=== PATIENT | male | born 1955 | race Caucasian/White ===

== ENCOUNTER 2024-01-19 14:08 | Emergency (ER) | payer OTHER, SELFPAY ==
[2024-01-19] VITALS (15 sets, daily range): BP systolic 122–166; BP diastolic 73–102; PULSE 81–92; RESP 9–18; TEMP 36.9; O2SAT 90–99
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
[2024-01-19 14:31] LABS: Add Manual Diff / Slide Review NO; Basophils Absolute Auto 100 /uL (0-100); Eosinophils Absolute Auto 300 /uL (0-450); Eosinophils Percent Auto 2.6 % (2-4); Hematocrit 44.7 % (41-53); Hemoglobin 15.2 g/dL (13.5-17.5); Lymphocytes Absolute Auto 3800 /uL (1100-4500); Lymphocytes Percent Auto 35.7 % (25-40); Mean Corpuscular HGB Conc 33.9 % (30-36); Mean Corpuscular Hemoglobin 30.7 PG (26-34); Mean Corpuscular Volume 90.6 fL (80-100); Monocytes Absolute Auto 900 /uL (0-900); Monocytes Percent Auto 8.3 % (3-14); Neutrophils Absolute Auto 5500 /uL (1500-7000); Neutrophils Percent Auto 52.4 % (50-75); Platelet Count 229 X10^3/uL (150-400); Red Blood Cell Count 4.94 X10^6/uL (4.5-5.9); Red Cell Distribution Width 13.5 % (11.6-14.8); White Blood Cell Count 10.5 X10^3/uL (4.5-11.0)
--- NOTE | 2024-01-19 14:37 | PC.NURSE ---
Patient began vomiting in CT, log rolled to side, suction hooked up. Administration of IV zofran.
[2024-01-19] MEDS: ONDANSETRON 4 MG/2 ML INJ IV (14:41)
[2024-01-19 14:43] LABS: Alanine Aminotransferase 41 IU/L (<50); Albumin 4.2 g/dL (3.5-5.0); Albumin Globulin Ratio 1.7 (1.0-2.8); Alkaline Phosphatase 56 U/L (38-126); Aspartate Aminotransferase 40 IU/L (17-59); BUN Creatinine Ratio 29.1 (6-22); Bilirubin Total 0.8 mg/dL (0.2-1.3); Blood Urea Nitrogen 25 mg/dL (9-20); Calcium 8.9 mg/dL (8.4-10.2); Carbon Dioxide 23 mmol/L (22-32); Chloride 104 mmol/L (98-107); Estimated Glomerular Filt Rate > 60 mL/min (>60); Ethanol (ETOH) < 10 mg/dL; Globulin 2.5 g/dL (1.7-4.1); Glucose 132 mg/dL (80-110); HEMOLYSIS < 15 (0-50); Lipase 118 U/L (23-300); Potassium 3.7 mmol/L (3.4-5.1); Sodium 134 mmol/L (137-145); Total Protein 6.7 g/dL (6.3-8.2)
[2024-01-19] MEDS: ACETAMINOPHEN IV 1,000 MG/100 ML VIAL 400 MG IV (15:02)
--- NOTE | 2024-01-19 15:09 | PC.NURSE ---
Pt's at bedside providing medical history. Pt still A&Ox1, obeying commands. Complaining of a headache. IV tylenol ordered and running.
== END 2024-01-19 17:30 | disposition short-term general hospital (02) ==
PROVIDERS: Emergency Provider Emergency Medicine
DX: S06.6X0A Traumatic subarachnoid hemorrhage without loss of consciousness, initial encounter (principal); S06.5X0A Traumatic subdural hemorrhage without loss of consciousness, initial encounter; S02.109A Fracture of base of skull, unspecified side, initial encounter for closed fracture; S20.211A Contusion of right front wall of thorax, initial encounter; S20.311A Abrasion of right front wall of thorax, initial encounter; V29.91XA Electric (assisted) bicycle rider (driver) (passenger) injured in unspecified traffic accident, initial encounter
CPT/HCPCS: 36415; 70450; 71275; 72125; 74177; 80053; 80320; 83690; 85025; 96365; 96375; 99285; 99291; J0136; J2405; Q9967

== ENCOUNTER 2024-08-18 14:39 | Emergency (ER) | payer OTHER, SELFPAY ==
[2024-08-18 14:42] VITALS: BP 132/78; PULSE 97; RESP 18; TEMP 36.7; O2SAT 95; BMI 35.4
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
[2024-08-18] MEDS: IBUPROFEN 400 MG TABLET 800 MG PO (17:21)
[2024-08-18 18:25] VITALS: BP 144/74; PULSE 100; RESP 18; TEMP 36.4; O2SAT 100
== END 2024-08-18 18:26 | disposition home or self-care (01) ==
PROVIDERS: Emergency Provider Emergency Medicine
DX: S16.1XXA Strain of muscle, fascia and tendon at neck level, initial encounter (principal); R42 Dizziness and giddiness; M25.512 Pain in left shoulder; M25.511 Pain in right shoulder; Z86.79 Personal history of other diseases of the circulatory system; V89.2XXA Person injured in unspecified motor-vehicle accident, traffic, initial encounter
CPT/HCPCS: 70450; 72125; 99284

== ENCOUNTER 2024-11-10 13:55 | Emergency (ER) | payer BC, SELFPAY ==
[2024-11-10 14:06] VITALS: BP 123/76; PULSE 85; RESP 18; TEMP 36.9; O2SAT 94; BMI 38.0
--- NOTE | 2024-11-10 14:11 | DI.RAD.S_ITS ---
PROCEDURE: XR CHEST 1V INDICATIONS: Shortness of breath TECHNIQUE: One view of the chest was acquired. COMPARISON: None. FINDINGS: Surgical changes and devices: None. Lungs and pleura: Mild pulmonary vascular congestion is seen. No definite focal infiltrate. No pleural effusions or pneumothorax. Mediastinum: Mediastinal contours appear normal. Heart size is normal. Bones and chest wall: No suspicious bony lesions. Overlying soft tissues appear unremarkable. IMPRESSION: Mild pulmonary vascular congestion. No definite focal infiltrate. No pleural effusion or pneumothorax. Dictated by: Vaughn Whitmore M.D. on 11/10/2024 at 14:31 Approved by: Vaughn Whitmore M.D. on 11/10/2024 at 14:32
--- NOTE | 2024-11-10 14:17 | EKG_ITS ---
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
[2024-11-10] MEDS: ALBUTEROL/IPRATROPIUM 3 ML AMPUL 9 ML INH (14:36)
[2024-11-10 14:37] VITALS: PULSE 82; RESP 16; O2SAT 97
[2024-11-10 14:45] LABS: Add Manual Diff / Slide Review NO; Basophils Absolute Auto 0 /uL (0-100); Basophils Percent Auto 0.5 % (0-2); Eosinophils Absolute Auto 200 /uL (0-450); Eosinophils Percent Auto 5.9 % (2-4); Hematocrit 44.4 % (41-53); Lymphocytes Absolute Auto 1700 /uL (1100-4500); Lymphocytes Percent Auto 40.5 % (25-40); Mean Corpuscular HGB Conc 33.8 % (30-36); Mean Corpuscular Hemoglobin 30.6 PG (26-34); Mean Corpuscular Volume 90.6 fL (80-100); Monocytes Absolute Auto 600 /uL (0-900); Monocytes Percent Auto 13.3 % (3-14); Neutrophils Absolute Auto 1700 /uL (1500-7000); Neutrophils Percent Auto 39.8 % (50-75); Platelet Count 191 X10^3/uL (150-400); Red Cell Distribution Width 14.1 % (11.6-14.8); White Blood Cell Count 4.2 X10^3/uL (4.5-11.0)
[2024-11-10 14:50] LABS: INR 1.1 (0.9-1.3); Prothrombin Time 12.4 SECONDS (9.4-12.5)
[2024-11-10 14:56] LABS: Lactate (Lactic Acid) 1.2 mmol/L (0.7-2.1)
[2024-11-10 14:57] LABS: Alanine Aminotransferase 100 IU/L (<50); Albumin 4.2 g/dL (3.5-5.0); Albumin Globulin Ratio 1.5 (1.0-2.8); Alkaline Phosphatase 46 U/L (38-126); Aspartate Aminotransferase 87 IU/L (17-59); BUN Creatinine Ratio 28.4 (6-22); Bilirubin Total 0.6 mg/dL (0.2-1.3); Blood Urea Nitrogen 25 mg/dL (9-20); Calcium 9.3 mg/dL (8.4-10.2); Carbon Dioxide 26 mmol/L (22-32); Chloride 103 mmol/L (98-107); Estimated Glomerular Filt Rate > 60 mL/min (>60); Globulin 2.8 g/dL (1.7-4.1); Glucose 101 mg/dL (80-110); HEMOLYSIS < 15 (0-50); Potassium 3.9 mmol/L (3.4-5.1); Sodium 138 mmol/L (137-145)
[2024-11-10 15:08] LABS: NT-proBNP (BNP-Adult 18+) < 20 pg/mL (<125); Troponin I < 0.012 ng/mL (0.01-0.034)
[2024-11-10] MEDS: methylPREDNISolone 125 MG/2 ML VIAL IV (15:39)
--- NOTE | 2024-11-10 16:45 | ED_ITS ---
HPI - SOB/Dyspnea General Chief Complaint: Shortness of Breath/Dyspnea Stated Complaint: SOB; coughing up stuff Time Seen by Provider: 11/10/24 15:27 Source: family Mode of arrival: Family Vehicle Limitations: no limitations History of Present Illness HPI Narrative: Patient here for cough shortness of breath for the past 2 weeks. Patient does have history of asthma. Home inhalers or out of date. Has not gotten better. No known sick contacts. Patient has been traveling recently. He was out of town and 1 night he was coughing a lot became short of breath he did pass out, no known injury from this. 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 Was at [facility] after being transferred from here. Had ICU admission. No surgeries were done. Has been doing well since then. On arrival patient did have wheezing. Had 3 nebulizers and Solu-Medrol. He is doing much better now. Speaking comfortably full sentences. Clear lung sounds now. Patient is not on home oxygen. Related Data Previous Rx's Medication Instructions Recorded methocarbamol 750 mg tablet 750 mg PO Q8H PRN muscle spasm #14 08/18/24 tabs albuterol sulfate 90 mcg/actuation 2 inhalation inhalation QID PRN 11/10/24 aerosol inhaler (Ventolin HFA) shortness of breath or wheezing #6.7 grams amoxicillin 875 mg-potassium 1 tab PO BID #14 tabs 11/10/24 clavulanate 125 mg tablet benzonatate 100 mg capsule 100 mg PO TID PRN cough #20 caps 11/10/24 doxycycline monohydrate 100 mg 100 mg PO BID #14 caps 11/10/24 capsule methylprednisolone 4 mg tablets in See Rx Instructions PO .COMPLEX 11/10/24 a dose pack (Medrol (Martin)) #21 ea Allergies Allergy/AdvReac Type Severity Reaction Status Date / Time No Known Drug Allergies Allergy Verified 01/19/24 14:42 Review of Systems Review of Systems Narrative: GENERAL: Negative chills, fatigue, malaise, fever, sweats. HEENT: Negative sinus pain, ear pain, sore throat RESPIRATORY: Positive dyspnea, cough CARDIOVASCULAR: Negative chest pain, palpitations GASTROINTESTINAL: Negative vomiting, nausea, abdominal pain : Negative dysuria, frequency, hematuria MUSCULOSKELETAL: Negative muscle or bony pain SKIN: Negative rash, skin lesions NEUROLOGIC: Negative weakness, numbness ROS Unobtainable: All systems reviewed & are unremarkable except as noted in HPI and below Patient History Social History Smoking Status: Never smoker Smoking Status: Never smoker alcohol intake frequency: other Exam Narrative Exam Narrative: GENERAL: in no distress, not toxic not dyspneic HEAD: Normocephalic. EYES: Pupils equal round ENT: Mucous membranes moist. NECK: Trachea midline. CARDIOVASCULAR: Regular rate and rhythm RESPIRATORY: Clear to auscultation. Breath sounds equal bilaterally. No wheezes, rales, or rhonchi. Patient already had breathing treatments prior to my arrival. Speaking full sentences comfortably. Clear and equal bilateral lung sounds. GASTROINTESTINAL: Abdomen soft, non-tender EXTREMITIES: No gross deformities. BACK: No flank tenderness. NEURO: AOx4. Clear speech SKIN: Warm and dry PSYCH: Not anxious, is cooperative Initial Vital Signs Initial Vital Signs: Vital Signs Temperature 98.5 F 11/10/24 14:06 Pulse Rate 85 11/10/24 14:06 Respiratory Rate 18 11/10/24 14:06 Blood Pressure 123/76 11/10/24 14:06 Pulse Oximetry 94 11/10/24 14:06 Oxygen Delivery Method Room Air 11/10/24 14:06 Course Orders Ordered: Discontinued Medications Albuterol/Ipratropium (Albuterol/Ipratropium 3 Ml Ampul) 9 ml INH NOW ONE Stop: 11/10/24 14:32 Last Admin: 11/10/24 14:36 Dose: 9 ml Documented By: [email or web address] Amoxicillin/Clavulanate Potassium (Amoxicillin/Clav 875/125 Mg) 1 tab PO NOW ONE Stop: 11/10/24 18:28 Last Admin: 11/10/24 18:43 Dose: 1 tab Documented By: EVELINE Benzonatate (Benzonatate 100 Mg Capsule) 100 mg PO NOW ONE Stop: 11/10/24 18:28 Last Admin: 11/10/24 18:43 Dose: 100 mg Documented By: EVELINE Doxycycline Hyclate (Doxycycline Hyclate 100 Mg Tablet) 100 mg PO NOW ONE Stop: 11/10/24 18:28 Last Admin: 11/10/24 18:43 Dose: 100 mg Documented By: EVELINE Sodium Chloride (Normal Saline 0.9%) 500 mls @ 1,000 mls/hr IV BOLUS ONE Stop: 11/10/24 17:13 Last Infusion: 11/10/24 18:47 Dose: Infused Documented By: Admin: 11/10/24 17:05 Dose: 1,000 mls/hr Documented By: EVELINE Methylprednisolone (Methylprednisolone 125 Mg/2 Ml Vial) 125 mg IV NOW ONE Stop: 11/10/24 15:29 Last Admin: 11/10/24 15:39 Dose: 125 mg Documented By: DIEGO Vital Signs Vital signs: Vital Signs - 8 hr 11/10/24 14:06 11/10/24 14:37 Temperature 98.5 F Pulse Rate 85 82 Respiratory Rate 18 16 Blood Pressure 123/76 Pulse Oximetry 94 97 Oxygen Delivery Method Room Air Room Air MDM - SOB/Dyspnea Lab Data 11/10/24 14:35 11/10/24 14:35 Labs: Lab Results 11/10/24 11/10/24 Range/Units 14:35 17:55 WBC 4.2 L (4.5-11.0) X10^3/uL RBC 4.90 (4.5-5.9) X10^6/uL Hgb 15.0 (13.5-17.5) g/dL Hct 44.4 (41-53) % MCV 90.6 (80-100) fL MCH 30.6 (26-34) PG MCHC 33.8 (30-36) % RDW 14.1 (11.6-14.8) % Plt Count 191 (150-400) X10^3/uL Neut % (Auto) 39.8 L (50-75) % Lymph % (Auto) 40.5 H (25-40) % Weston % (Auto) 13.3 (3-14) % Eos % (Auto) 5.9 H (2-4) % Baso % (Auto) 0.5 (0-2) % Neut # (Auto) 1700 (6426-3315) /uL Lymph # (Auto) 1700 (8753-9058) /uL Weston # (Auto) 600 (0-900) /uL Eos # (Auto) 200 (0-450) /uL Baso # (Auto) 0 (0-100) /uL PT 12.4 (9.4-12.5) SECONDS INR 1.1 (0.9-1.3) Sodium 138 (137-145) mmol/L Potassium 3.9 (3.4-5.1) mmol/L Chloride 103 (98-107) mmol/L Carbon Dioxide 26 (22-32) mmol/L BUN 25 H (9-20) mg/dL Creatinine 0.88 (0.66-1.25) mg/dL Estimated GFR > 60 (>60) mL/min BUN/Creatinine Ratio 28.4 H (6-22) Glucose 101 (80-110) mg/dL Lactate 1.2 (0.7-2.1) mmol/L Calcium 9.3 (8.4-10.2) mg/dL Total Bilirubin 0.6 (0.2-1.3) mg/dL AST 87 H (17-59) IU/L ALT 100 H (<50) IU/L Alkaline Phosphatase 46 (38-126) U/L Troponin I < 0.012 (0.01-0.034) ng/mL NT-Pro-B Natriuret Pep < 20 (<125) pg/mL Total Protein 7.0 (6.3-8.2) g/dL Albumin 4.2 (3.5-5.0) g/dL Globulin 2.8 (1.7-4.1) g/dL Albumin/Globulin Ratio 1.5 (1.0-2.8) SARS-CoV-2 (PCR) Negative (Negative) Influenza A (RT-PCR) Flu a positive H (NEGATIVE) Influenza B (RT-PCR) Flu b negative (NEGATIVE) RSV (PCR) Negative (Negative) Imaging Data Chest x-ray: Radiologist's Impression: [address] [address] XRay Report Signed Patient: Sonido Jenkins MR#: [id number] : 1955 Acct:[id number] Age/Sex: 69 / M Date of Service: 11/10/24 Loc: ED Accession Number: [id number] Procedure: XR chest 1V Ordering Provider: Dmitry Grubbs MD PROCEDURE: XR CHEST 1V INDICATIONS: Shortness of breath TECHNIQUE: One view of the chest was acquired. COMPARISON: None. FINDINGS: Surgical changes and devices: None. Lungs and pleura: Mild pulmonary vascular congestion is seen. No definite focal infiltrate. No pleural effusions or pneumothorax. Mediastinum: Mediastinal contours appear normal. Heart size is normal. Bones and chest wall: No suspicious bony lesions. Overlying soft tissues appear unremarkable. IMPRESSION: Mild pulmonary vascular congestion. No definite focal infiltrate. No pleural effusion or pneumothorax. Dictated by: Vaughn Whitmore M.D. on 11/10/2024 at 14:31 Approved by: Vaughn Whitmore M.D. on 11/10/2024 at 14:32 CT scan - head: Radiologist's Impression: [address] [address] [address] Scan Report Signed Patient: Sonido Jenkins MR#: [id number] : 1955 Acct:[id number] Age/Sex: 69 / M Date of Service: 11/10/24 Loc: ED Accession Number: [id number] Procedure: CT head/brain wo con Ordering Provider: Dmitry Grubbs MD PROCEDURE: CT HEAD/BRAIN WO CON INDICATIONS: Fall/injury TECHNIQUE: Noncontrast 4.5 mm thick angled axial sections acquired from the foramen magnum to the vertex, with coronal and sagittal reformats. For radiation dose reduction, the following was used: automated exposure control, adjustment of mA and/or kV according to patient size. COMPARISON: [facility], CT, CT HEAD/BRAIN WO CON, 08/18/2024, 17:23. FINDINGS: Image quality: Diagnostic. CSF spaces: Basal cisterns are patent. No extra-axial fluid collections. The ventricles are symmetric in size and shape. 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 No intracranial bleeds or mass effect. There is cerebral volume loss, with resultant ventricular and sulcal prominence. There are periventricular and deep white matter chronic small vessel ischemic changes. There is intracranial internal carotid artery atherosclerosis. Skull and face: Calvarium and visualized facial bones appear intact, without suspicious lesions. Sinuses: Visualized sinuses and mastoids are clear. IMPRESSION: No acute intracranial pathology. No significant changes from previous study. Dictated by: Vaughn Whitmore M.D. on 11/10/2024 at 17:22 Approved by: Vaughn Whitmore M.D. on 11/10/2024 at 17:22 CT scan - chest: Radiologist's Impression: [address] [address] [address] Scan Report Signed Patient: Sonido Jenkins MR#: [id number] : 1955 Acct:[id number] Age/Sex: 69 / M Date of Service: 11/10/24 Loc: ED Accession Number: [id number] Procedure: CT angio chest PE protocol Ordering Provider: Dmitry Grubbs MD PROCEDURE: CT ANGIO CHEST PE PROTOCOL INDICATIONS: cough/soa TECHNIQUE: After the administration of intravenous contrast, 2 mm thick sections acquired from the pulmonary apices to the posterior costophrenic angles. 3-dimensional maximum intensity projection (MIP) coronal and sagittal reformats were then acquired through the thorax. For radiation dose reduction, the following was used: automated exposure control, adjustment of mA and/or kV according to patient size. COMPARISON: None. FINDINGS: Image quality: Diagnostic. Pulmonary arteries: Pulmonary arteries are normal in size, and demonstrate no intraluminal filling defects to suggest central pulmonary embolism. Lower Neck: No enlarged lymph nodes. Thyroid: No thyroid nodules which require sonographic follow up, per consensus guidelines. Axillae: No enlarged lymph nodes. Chest Wall: Unremarkable. Bones: No aggressive bony lesions. Lungs and Pleura: No pneumothorax or pleural effusions. Small infiltrate/atelectasis in posterior medial aspect of right lung base. Mild dependent atelectasis is seen in posterior aspect of left lower lobe. No suspicious pulmonary nodule. Airway is patent. Heart: Heart size is enlarged. No pericardial effusion. Thoracic Vessels: No aortic aneurysm. Mediastinum and Tamara: No enlarged lymph nodes. Esophagus: No wall thickening. Small hiatal hernia. Upper Abdomen: Visualized upper abdomen solid organs and bowel loops appear normal. IMPRESSION: 1. No pulmonary embolus. No thoracic aortic aneurysm or gross dissection. 2. Small infiltrate/atelectasis in posterior medial aspect of right lung base. Mild left basilar dependent atelectasis. No other airspace is consolidations. No pleural effusion or pneumothorax. 3. No mediastinal or hilar lymphadenopathy. Dictated by: Vaughn Whitmore M.D. on 11/10/2024 at 17:53 Approved by: Vaughn Whitmore M.D. on 11/10/2024 at 17:55 MDM Narrative Medical decision making narrative: Patient here for cough shortness of breath for the past 2 weeks. Patient does have history of asthma. Home inhalers or out of date. Has not gotten better. No known sick contacts. Patient has been traveling recently. He was out of town and 1 night he was coughing a lot became short of breath he did pass out, no known injury from this. 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 Was at [facility] after being transferred from here. Had ICU admission. No surgeries were done. Has been doing well since then. On arrival patient did have wheezing. Had 3 nebulizers and Solu-Medrol. He is doing much better now. Speaking comfortably full sentences. Clear lung sounds now. Patient is not on home oxygen. After history and exam, CBC CMP EKG troponin BNP chest x-ray nebulizers Solu- Medrol MDM Medical records reviewed: No recent visit for this complaint Differential considered: Includes but not limited to pneumonia bronchitis RSV influenza COVID asthma exacerbation pulmonary embolism Lab Test results independently reviewed as above. Pertinent findings: WBC 4.2 hemoglobin 15.0 sodium 138 potassium 3.9 bicarb 26 BUN 25 creatinine 0.88 GFR greater than 60 lactate 1.2 troponin less than 0.012 BNP less than 20, Independently reviewed EKG normal sinus rhythm normal EKG rate 73 Imaging studies independently reviewed: Chest x-ray mild vascular congestion, CT head no acute finding, CT chest no embolus, there is small infiltrate right base. Consultations: None indicated at this time Re-evaluations: 6:30 p.m.. Updated patient results. Patient requiring supplemental oxygen. Patient feeling much better. Speaking full sentences comfortably. Clear and equal lung sounds. Reviewed with patient being treated for community-acquired pneumonia. As well as asthma exacerbation. He does have family doctor to follow up next week. He desires discharge home. Discussion: Appropriate for discharge home. Exam is reassuring. Patient not requiring supplemental oxygen. Antibiotics have been started. Patient feeling much better. Return precautions reviewed. He desires discharge home. Diagnosis: Community-acquired pneumonia asthma exacerbation Discharge Plan Departure Patient Disposition: Home Clinical Impression: Community acquired pneumonia Qualifiers: Laterality: right Lung location: lower lobe of lung Qualified Code(s): J18.9 - Pneumonia, unspecified organism Asthma exacerbation Qualifiers: Asthma severity: moderate Asthma persistence: unspecified Qualified Code(s): J 45.901 - Unspecified asthma with (acute) exacerbation Instructions: DI for Asthma -- Adult, DI for Pneumonia -- Adult Activity Restrictions/Additional Instructions: Please continue steroid pack tomorrow and your antibiotics. Prescriptions have been sent to your pharmacy to [employer]. You are being treated for pneumonia and asthma exacerbation. Refill for your inhaler has been provided. Please see your family doctor next week for re-evaluation. I am glad you are feeling better. Return if worse if any questions or concerns. Prescriptions: New benzonatate 100 mg capsule 100 mg PO TID PRN (Reason: cough) Qty: 20 0RF doxycycline monohydrate 100 mg capsule 100 mg PO BID Qty: 14 0RF methylprednisolone [Medrol (Martin)] 4 mg tablets,dose pack See Rx Instructions .ROUTE .COMPLEX Qty: 21 0RF Rx Instructions: orally per package directions albuterol sulfate [Ventolin HFA] 90 mcg/actuation HFA aerosol inhaler 2 inhalation INHALATION QID PRN (Reason: shortness of breath or wheezing) Qty: 6.7 0RF amoxicillin-pot clavulanate 875-125 mg tablet 1 tab PO BID Qty: 14 0RF No Action methocarbamol 750 mg tablet 750 mg PO Q8H PRN (Reason: muscle spasm) Qty: 14 0RF Referrals: Miscellaneous,Doctor, MD [Primary Care Provider] - Stand Alone Forms: Patient Portal/API/Survey
[2024-11-10] MEDS: SODIUM CHLORIDE 0.9% 500 ML 1000 ML IV (17:05)
[2024-11-10 18:36] LABS: Influenza A - CEPHEID Flu A POSITIVE (NEGATIVE); Influenza B - CEPHEID Flu B NEGATIVE (NEGATIVE); Respiratory Syncytial Virus Negative (Negative)
[2024-11-10] MEDS: BENZONATATE 100 MG CAPSULE PO (18:43)
[2024-11-10] MEDS: AMOXICILLIN/CLAV 875/125 MG 1 TAB PO (18:43)
[2024-11-10] MEDS: DOXYCYCLINE HYCLATE 100 MG TABLET PO (18:43)
[2024-11-10 18:46] LABS: COVID-19 CEPHEID 4-PLEX PCR Negative (Negative)
[2024-11-10 19:04] VITALS: BP 146/88; PULSE 85; RESP 18; O2SAT 95
== END 2024-11-10 18:50 | disposition home or self-care (01) ==
PROVIDERS: Emergency Provider Emergency Medicine
DX: J18.9 Pneumonia, unspecified organism (principal); J45.901 Unspecified asthma with (acute) exacerbation; Z87.820 Personal history of traumatic brain injury
CPT/HCPCS: 0241U; 70450; 71045; 71275; 80053; 83605; 83880; 84484; 85025; 85610; 93005; 93010; 94150; 94640; 96361; 96374; 99284; J2919; Q9967